=== PATIENT | male | born 1980 | race Caucasian/White ===

== ENCOUNTER 2017-10-03 22:11 | Emergency (ER) | payer SELFPAY ==
[~2017-10-03] VITALS: Ht 180.3 cm; Wt 90.7 kg
[~2017-10-03 22:11] MED LIST: FLEXERIL10 MG PO; INDOCIN50 MG PO; MOTRIN600 MG PO; MOTRIN800 MG PO; NAPROSYN500 MG PO; PEN-VEE K500 MG PO; VICODIN 5/500 505 MG PO
[2017-10-03] MEDS ORDERED: MEDROL DOSEPAK4 MG PO (23:35)
== END 2017-10-03 23:53 | disposition home or self-care (01) ==
LOC: ED 22:11
DX: M54.16 Radiculopathy, lumbar region (principal); M79.605 Pain in left leg; F17.200 Nicotine dependence, unspecified, uncomplicated

== ENCOUNTER 2018-03-14 20:14 | Emergency (ER) | payer SELFPAY ==
[~2018-03-14] VITALS: Ht 187.9 cm; Wt 86.2 kg
[~2018-03-14 20:14] MED LIST changes: +MEDROL DOSEPAK4 MG PO
[2018-03-14] MEDS ORDERED: SEPTDS PO (22:26)
[2018-03-14] MEDS ORDERED: CEPHALEXIN500 M1 PO (22:26)
== END 2018-03-14 22:28 | disposition home or self-care (01) ==
LOC: ED 20:14
DX: L72.3 Sebaceous cyst (principal); L02.612 Cutaneous abscess of left foot

== ENCOUNTER 2023-12-24 08:34 | Emergency (ER) | payer SELFPAY ==
[~2023-12-24] VITALS: Ht 187.9 cm; Wt 86.2 kg
[~2023-12-24 08:34] MED LIST changes: +CEPHALEXIN500 M1 PO; +SEPTDS PO
[2023-12-24] MEDS ORDERED: SODIUM CHLORIDE 0.9% 1,000 ML IV ONE (08:55)
[2023-12-24] MEDS ORDERED: Ketorolac Tromethamine 15 MG/ML VIAL IV ONE (08:55)
[2023-12-24] MEDS ORDERED: Ondansetron Hydrochloride 4 MG/2 ML VIAL IV ONE (08:55)
[2023-12-24] MEDS ORDERED: MORPHINE Sulfate 2 MG/ML SYR IV ONE (08:55)
[2023-12-24 09:04] LABS: BASO # 0.1 10*3/uL (0.0-0.1); BASO % 1.6 % (0.0-1.0); EOS # 0.1 10*3/uL (0.0-0.4); EOS % 2.2 % (1.0-4.0); HEMATOCRIT 45.8 % (42.0-52.0); LYMPH # 1.6 10*3/uL (1.3-4.4); LYMPH % 25.8 % (27.0-41.0); MEAN CELL VOLUME 99.1 fl (80.0-94.0); MEAN CORPUSCULAR HGB 32.7 pg (27.0-31.0); MEAN PLATELET VOLUME 8.7 fl (9.6-12.3); MONO # 0.5 10*3/uL (0.1-1.0); MONO % 7.9 % (3.0-9.0); NEUT # 3.9 10*3/uL (2.3-7.9); NEUT % 62.3 % (47.0-73.0); PLATELET COUNT AUTOMATED 335 10*3/uL (130-400); RED BLOOD COUNT 4.62 10*6/uL (4.50-5.90); RED CELL DISTRI WIDTH 12.1 % (0-14.5); WHITE BLOOD COUNT 6.3 10*3/uL (4.8-10.8)
[2023-12-24 09:25] LABS: ALKALINE PHOSPHATASE 64 U/L (46-116); CHLORIDE 108 mmol/L (98-107); POTASSIUM 4.6 mmol/L (3.4-5.1); SGPT/ALT 28 U/L (5-49)
[2023-12-24 09:29] LABS: BUN < 5 mg/dl (9-23)
[2023-12-24] MEDS ORDERED: MELOXICAM15 MG PO (10:57)
== END 2023-12-24 11:04 | disposition home or self-care (01) ==
LOC: ED 08:34
PROVIDERS: Emergency Medicine
DX: R09.1 Pleurisy (principal); R10.9 Unspecified abdominal pain; F17.210 Nicotine dependence, cigarettes, uncomplicated